=== PATIENT | female | born 2000 | race Two or more races ===

== ENCOUNTER 2018-12-13 00:09 | Emergency (ER) | payer OTHER, BC ==
[2018-12-13] MEDS ORDERED: Lidocaine 1% (PF) 30 ML VIAL ONE (00:45)
[2018-12-13] MEDS ORDERED: Bupivacaine 0.5% 10 ML VIAL ONE (00:54)
[2018-12-13] MEDS ORDERED: Adacel (T-DAP) 0.5 ML SYRINGE ONE (00:54)
--- NOTE | 2018-12-13 07:45 | RAD ---
LEFT HAND 3 VIEWS: Date: 12/13/18 INDICATION: History of left palmar laceration. COMPARISON: None. FINDINGS: No acute fracture or subluxation is evident. There is some radiopaque debris along the palmar soft ti ssues of the left long finger distal phalanx which may be in the zone of injury. Recommend correlatio n. Small amount of radiopaque debris within this region cannot be entirely excluded. IMPRESSION: As above. POS: BH
== END 2018-12-13 02:17 | disposition home or self-care (01) ==
LOC: ERS 00:09
DX: S61.213A Laceration without foreign body of left middle finger without damage to nail, initial encounter (principal); F41.9 Anxiety disorder, unspecified; F32.9 Major depressive disorder, single episode, unspecified; Z87.891 Personal history of nicotine dependence; W25.XXXA Contact with sharp glass, initial encounter
CPT/HCPCS: 90471; 90715; J2001; J3490

== ENCOUNTER 2019-09-26 05:05 | Emergency (ER) | payer BC | END 2019-09-26 05:45 | disposition home or self-care (01) | LOC: ERS 05:05 | DX: F41.9 Anxiety disorder, unspecified (principal); F32.9 Major depressive disorder, single episode, unspecified; Z87.891 Personal history of nicotine dependence | CPT/HCPCS: 93005; 94760 ==

== ENCOUNTER 2020-08-20 14:28 | Inpatient (IN) | payer BC, OTHER ==
[2020-08-20] MEDS ORDERED: Labetalol HCl 100 MG/20 ML VIAL ONE (15:14)
[2020-08-20] MEDS ORDERED: Ondansetron PF 4 MG/2 ML Vial IVP PRN (15:17)
[2020-08-20] MEDS ORDERED: Calcium Gluc 4.6 MEQ/10 ML (100 MG/ML) SLOW IVP PRN (15:17)
[2020-08-20] MEDS ORDERED: HYDROcodone/Acetaminophen 5/325 mg Tablet PO PRN (15:17)
[2020-08-20] MEDS ORDERED: Bupivacaine/Epinephrine 0.25% 30 ML VIAL ONE (15:17)
[2020-08-20] MEDS ORDERED: hydrALAZINE 20 MG/ML VIAL SLOW IVP PRN (15:17)
[2020-08-20] MEDS ORDERED: Lidocaine 1% (PF) 30 ML VIAL SC PRN (15:17)
[2020-08-20] MEDS ORDERED: NS / Oxytocin 40 units/1000ml 1,000 ML IV PRN (15:17)
[2020-08-20] MEDS ORDERED: Ibuprofen 800 MG TAB PO PRN (15:17)
[2020-08-20] MEDS ORDERED: Butorphanol Tartrate 1 MG/ML VIAL SLOW IVP PRN (15:17)
[2020-08-20] MEDS ORDERED: Magnesium Sulfate 20 gm/500 ml 20 GM/500 ML BAG ONE (15:25)
[2020-08-20] MEDS ORDERED: NS w/ Oxytocin 10 units 500 ML IV SCH (15:30)
[2020-08-20] MEDS ORDERED: Magnesium Sulfate 20 gm/500 ml 20 GM/500 ML BAG IVPB SCH (15:30)
[2020-08-20] MEDS ORDERED: Labetalol HCl 100 MG/20 ML VIAL SLOW IVP SCH (15:30)
[2020-08-20] MEDS ORDERED: Magnesium Sulfate 20 GM/WATER 500 ML BAG IVPB SCH (15:30)
[2020-08-20 15:39] VITALS: BMI 32.1
[2020-08-20 15:41] LABS: Hemoglobin 10.2 g/dL (12.0-16.0); Mean Corpuscular HGB CONC 32.3 g/dL (32.0-36.0); Mean Corpuscular Volume 80.4 fL (78.0-98.0); Mean Platelet Volume 8.4 fL (7.4-10.4); Platelet Count 271 thou/uL (130-400); RBC Distribution Width 14.6 % (11.5-14.5); Red Blood Cell (RBC) Count 3.94 mill/uL (4.20-5.40); White Blood Cell (WBC) Count 14.6 thou/uL (4.8-10.8)
[2020-08-20 15:58] LABS: Amphetamine Not Detected (NotDetected); Barbiturates Screen Not Detected (NotDetected); Benzodiazepine Screen Not Detected (NotDetected); Cocaine Metabolite Screen Not Detected (NotDetected); Medtox Control Line Valid? VALID (VALID); Medtox Reader # READER 1; Methadone Not Detected (NotDetected); Methamphetamine Not Detected (NotDetected); Opiate Screen Not Detected (NotDetected); Oxycodone Screen Not Detected (NotDetected); Phencyclidine (PCP) Not Detected (NotDetected); THC/Cannabinoid Screen Not Detected (NotDetected); Tricyclic Screen Not Detected (NotDetected)
[2020-08-20 15:59] LABS: ALT (SGPT) Less than 7 U/L (8-55); AST (SGOT) 11 U/L (5-34); Albumin 3.4 g/dL (3.5-5.0); Alkaline Phosphatase 171 U/L (40-110); Anion Gap 13 mmol/L (10-20); BUN (Urea Nitrogen) 5 mg/dL (7.0-18.7); Bilirubin, Total 0.3 mg/dL (0.2-1.2); Calc. Creatinine Clearance 245 mL/min (70-130); Calcium 8.9 mg/dL (7.8-10.44); Carbon Dioxide 18 mmol/L (22-29); Chloride 109 mmol/L (98-107); Estimated GFR-MDRD Greater than 90; Globulin 3.4 g/dL (2.4-3.5); Glucose 105 mg/dL (70-105); Potassium 3.9 mmol/L (3.5-5.1); Protein, Total 6.8 g/dL (6.0-8.3); Sodium 136 mmol/L (136-145)
[2020-08-20 16:17] LABS: HBSAg Index 0.16 S/CO (0-0.99); Hep B Surf Ag Non-Reactive S/CO (NonReactive)
[2020-08-20 16:21] LABS: Syphilis Antibody Nonreactive (Nonreactive); Syphilis Antibody Index 0.07 S/CO (<1.00 Non-Reactive)
[2020-08-20] MEDS: Acetaminophen 500 MG TAB PO PRN (17:50)
[2020-08-21] MEDS: Acetaminophen 500 MG TAB PO PRN ×2 (07:18→16:43)
--- NOTE | 2020-08-21 07:50 | PDOC.EVN ---
Event Note - Event Note Event Note: Pt not responding to pitocin. turned off at 0400. Mag turned off earlier in the evening as severe range pressures not evident and pt with out symptoms or lab abnormalities. Dr Carrion will be assuming care. I have checked out to her. Pt being given and regular breakfast. Bp have been normal since 1999 last night until this am.
--- NOTE | 2020-08-21 08:08 | PDOC.LDPN ---
Labor & Delivery Progress Note - Subjective Subjective: comfortable - Objective Vital signs reviewed and normal: yes (mild range w normal) General: NAD Dilation: 2 FHT: category 1 - Assessment (1) Gestational hypertension Code(s): O13.9 - GESTATIONAL HTN W/O SIGNIFICANT PROTEINURIA, UNSP TRIMESTER Current Visit: Yes Status: Acute Plan: other -: Pt here for IOL GHTN w failed IOL/cervical ripening w pitocin-will change to cytotec for continued plan of IOL.
[2020-08-21] MEDS ORDERED: Misoprostol 100 MCG TAB VAG SCH (09:00)
[2020-08-21] MEDS ORDERED: FLU VACC QS2020-21(6MOS UP)/PF 60 MCG/0.5 ML SYRINGE IM ONE (09:00)
[2020-08-21 11:35] LABS: SARS-CoV-2 MS2 Positive; SARS-CoV-2 N Gene Negative; SARS-CoV-2 S Gene Negative; SARS-CoV-2 by NAA Not Detected (NotDetected); SARS-CoV-2 orf1ab Negative
[2020-08-21] MEDS: Misoprostol 100 MCG TAB VAG SCH ×2 (12:25→16:30)
--- NOTE | 2020-08-21 13:02 | PDOC.LDPN ---
Labor & Delivery Progress Note - Subjective Subjective: comfortable - Objective Vital signs reviewed and normal: yes General: resting Dilation: 2 Effacement: 75% FHT: category 1 - Assessment (1) Gestational hypertension Code(s): O13.9 - GESTATIONAL HTN W/O SIGNIFICANT PROTEINURIA, UNSP TRIMESTER Current Visit: Yes Status: Acute Plan: continue plan of care
--- NOTE | 2020-08-21 16:20 | PDOC.LDPN ---
Labor & Delivery Progress Note - Subjective Subjective: comfortable - Objective Vital signs reviewed and normal: yes General: NAD Uterine fundus: non tender Dilation: 3 Effacement: 75% Station: -1 FHT: category 1 - Assessment (1) Gestational hypertension Code(s): O13.9 - GESTATIONAL HTN W/O SIGNIFICANT PROTEINURIA, UNSP TRIMESTER Current Visit: Yes Status: Acute Plan: continue plan of care -: S/P cytotec x 2 dose (5omcg then 25mcg), discussed repeat one more dose (some thinning of cervix noted) @ 50mcg and plan for AROM and pitocin after that if indicated.
[2020-08-21] MEDS ORDERED: Fentanyl 4 mcg/Bup 0.1% Cadd 100 ML ONE (17:49)
[2020-08-21] MEDS ORDERED: Calcium Gluc 4.6 MEQ/10 ML (100 MG/ML) SLOW IVP PRN (18:49)
[2020-08-21] MEDS ORDERED: Acetaminophen 325 MG TAB PO PRN (19:16)
[2020-08-21] MEDS ORDERED: Lactated Ringer's 500 ML IV PRN (19:16)
[2020-08-21] MEDS ORDERED: Naloxone HCl 0.4 mg/ml Vial IVP PRN ×2 (19:16)
[2020-08-21] MEDS ORDERED: Promethazine HCl 25 MG/ML VIAL IM PRN ×2 (19:16→21:51)
[2020-08-21] MEDS ORDERED: diphenhydrAMINE 50 MG/ML VIAL IVP PRN (19:16)
[2020-08-21] MEDS ORDERED: EPHEDRINE 25 MG/5 ML SYRINGE SLOW IVP PRN (19:16)
[2020-08-21] MEDS ORDERED: Ondansetron PF 4 MG/2 ML Vial IVP PRN ×2 (19:16→21:51)
[2020-08-21] MEDS ORDERED: Fentanyl 4 mcg/Bupivacaine 0.1% Cassette 100 ML EPIDURAL SCH (19:30)
[2020-08-21] MEDS ORDERED: Communication Order-Pharmacy FS SCH (19:30)
[2020-08-21] MEDS: NS / Oxytocin 40 units/1000ml 1,000 ML IV SCH (21:40)
[2020-08-21 21:48] LABS: Actual Bicarbonate (HCO3v) 20 mEq/L (22-28); Base Excess -6.1 mEq/L (-2.0 to +3.0)
[2020-08-21 21:50] LABS: Actual Bicarbonate (HCO3a) 26.4 mEq/L (22-28); Base Excess (BEa) -3.8 mEq/L (-2.0 to +3.0)
[2020-08-21] MEDS ORDERED: Milk Of Magnesia 30 ML UDCUP PO PRN (21:51)
[2020-08-21] MEDS ORDERED: Lanolin Ointment 7 GM TUBE TOP PRN (21:51)
[2020-08-21] MEDS ORDERED: Misoprostol 200 MCG TAB VAG PRN (21:51)
[2020-08-21] MEDS ORDERED: HYDROcodone/Acetaminophen 5/325 mg Tablet PO PRN (21:51)
[2020-08-21] MEDS ORDERED: Adacel (T-DAP) 0.5 ML SYRINGE IM ONE (21:51)
[2020-08-21] MEDS ORDERED: Methylergonovine 0.2 MG/ML VIAL IM PRN (21:51)
[2020-08-21] MEDS ORDERED: Zolpidem Tartrate 5 MG TAB PO PRN (21:51)
[2020-08-21] MEDS ORDERED: Benzocaine-Menthol 82.5 ML CAN TOP PRN (21:51)
[2020-08-21] MEDS ORDERED: hydrALAZINE 20 MG/ML VIAL SLOW IVP PRN (21:51)
[2020-08-21] MEDS ORDERED: Varicella virus, LIVE 0.5 ML VIAL SC ONE (21:51)
[2020-08-21] MEDS ORDERED: Measles/Mumps/Rubella 10 MCG/0.5 ML VIAL SC ONE (21:51)
[2020-08-21] MEDS ORDERED: Methylergonovine 0.2 MG TAB PO PRN (21:51)
[2020-08-21] MEDS ORDERED: Bisacodyl 10 MG SUPP PR PRN (21:51)
[2020-08-21] MEDS ORDERED: Preparation H Ointment 28 GM TUBE PR PRN (21:51)
[2020-08-21] MEDS ORDERED: diphenhydrAMINE 25 MG CAP PO PRN (21:51)
--- NOTE | 2020-08-21 21:56 | PDOC.OPDEL ---
OB Operative/Delivery Note Delivery Dr/Surgeon: Cyndy Pre-Delivery Diagnosis: medically indicated induction Procedure/Post Delivery Dx: operative vaginal delivery (vacuum assisted) Weeks gestation: 37 Anesthesia: epidural - Findings A Sex: male (Jc) Weight: 7 lb 4.898 oz - 1 min: 7 - 5 min: 9 - Additional Findings/Plan Placenta delivered: spontaneous Repaired Obstetrical Laceration: 2nd degree Estimated blood loss: 505 ml Compilations/Other Findings: Patient gave verbal consent for vacuum assist if needed because of recurrent decelerations. Due to prolonged variable deceleration to 50s with no recovery, vacuum applied at +3 to +4 station. head delivered with maternal effort over one contraction. Pressure at 50 with no pop-offs. Vacuum removed and remainder of body delivered without difficulty. Post delivery plan: recovery in LICU
[2020-08-21] MEDS ORDERED: Calcium Gluconate 4.6 MEQ in Sodium Chloride 0.9% 100 ML IVPB PRN (22:39)
[2020-08-21] MEDS ORDERED: Magnesium Sulfate 20 gm/500 ml 20 GM/500 ML BAG IVPB SCH (22:45)
[2020-08-22] MEDS: Magnesium Sulfate 20 gm/500 ml 20 GM/500 ML BAG IVPB SCH ×2 (03:35→13:30)
[2020-08-22] MEDS: NS / Oxytocin 40 units/1000ml 1,000 ML IV SCH (07:05)
[2020-08-22] MEDS: HYDROcodone/Acetaminophen 5/325 mg Tablet PO PRN ×2 (07:19→18:09)
[2020-08-22] MEDS: Ibuprofen 800 MG TAB PO SCH ×3 (07:20→21:58)
[2020-08-22] MEDS ORDERED: Ferrous Sulfate 325 MG TAB PO SCH ×2 (08:00→20:54)
--- NOTE | 2020-08-22 08:18 | PDOC.PP ---
Post Progress Note Post Day #: 1 Subjective: doing well, magnesium recovery, no SI/SX pIH PO intake tolerated: yes Flatus: yes Ambulation: no Weight Weight 244 lb - Physical Examination General: NAD Respiratory: non-labored breathing Fundus firm & at: below umb Psychiatric: A&Ox3, normal affect Result Diagrams: 08/20/20 15:27 08/20/20 15:27 Additional Labs: Post Labs Hep Bs Antigen Non-Reactive S/CO (NonReactive) 08/20/20 15:27 Blood Type B POSITIVE 08/20/20 16:31 (1) Gestational hypertension Code(s): O13.9 - GESTATIONAL HTN W/O SIGNIFICANT PROTEINURIA, UNSP TRIMESTER Status: Acute - Assessment/Plan PPD 1, magnesium recovery for severe PIH through 2100 tonight.
[2020-08-22] MEDS ORDERED: Docusate Calcium (SURFAK) 240 MG CAP PO SCH (09:00)
[2020-08-22] MEDS ORDERED: Prenatal Vitamin 1 TAB PO SCH ×2 (09:00→20:54)
[2020-08-22] MEDS ORDERED: hydrALAZINE 20 MG/ML VIAL SLOW IVP PRN (20:54)
[2020-08-22] MEDS ORDERED: HYDROcodone/Acetaminophen 5/325 mg Tablet PO PRN ×2 (20:54)
[2020-08-22] MEDS ORDERED: Milk Of Magnesia 30 ML UDCUP PO PRN (20:54)
[2020-08-22] MEDS ORDERED: Lanolin Ointment 7 GM TUBE TOP PRN (20:54)
[2020-08-22] MEDS ORDERED: NS / Oxytocin 40 units/1000ml 1,000 ML IV SCH (20:54)
[2020-08-22] MEDS ORDERED: Bisacodyl 10 MG SUPP PR PRN (20:54)
[2020-08-22] MEDS ORDERED: diphenhydrAMINE 25 MG CAP PO PRN (20:54)
[2020-08-22] MEDS ORDERED: Preparation H Ointment 28 GM TUBE PR PRN (20:54)
[2020-08-22] MEDS ORDERED: Ondansetron PF 4 MG/2 ML Vial IVP PRN (20:54)
[2020-08-22] MEDS ORDERED: Promethazine HCl 25 MG/ML VIAL IM PRN (20:54)
[2020-08-22] MEDS ORDERED: Adacel (T-DAP) 0.5 ML SYRINGE IM ONE (20:54)
[2020-08-22] MEDS ORDERED: Benzocaine-Menthol 82.5 ML CAN TOP PRN (20:54)
[2020-08-22] MEDS: Docusate Calcium (SURFAK) 240 MG CAP PO SCH (21:58)
[2020-08-23] MEDS ORDERED: Ibuprofen 800 MG TAB PO SCH (05:00)
[2020-08-23] MEDS: Ibuprofen 800 MG TAB PO SCH (05:52)
--- NOTE | 2020-08-23 08:12 | PDOC.PP ---
Post Progress Note Post Day #: 2 Subjective: doing well,no PIH sx PO intake tolerated: yes Flatus: yes Ambulation: yes Weight Weight 244 lb - Physical Examination General: NAD Respiratory: non-labored breathing Abdominal: no distention Fundus firm & at: below umb Neurological: no gross focal deficits Psychiatric: A&Ox3, normal affect Result Diagrams: 08/20/20 15:27 08/20/20 15:27 Additional Labs: Post Labs Hep Bs Antigen Non-Reactive S/CO (NonReactive) 08/20/20 15:27 Blood Type B POSITIVE 08/20/20 16:31 (1) Gestational hypertension Code(s): O13.9 - GESTATIONAL HTN W/O SIGNIFICANT PROTEINURIA, UNSP TRIMESTER Status: Acute - Assessment/Plan PPD2 doing well, BP WNL off magnesium. Has BP cuff at home and will continue to monitor. Plan for DC this afternoon if BP remain WNL/mild range.
[2020-08-23] MEDS: Docusate Calcium (SURFAK) 240 MG CAP PO SCH (08:59)
[2020-08-23 09:09] VITALS: BP 121/70; TEMP 98.2
== END 2020-08-23 13:30 | disposition home or self-care (01) | DRG 807 ==
LOC: L&D/OP 14:28 → L&D 15:44
PROVIDERS: ADMIT Obstetrics & Gynecology; ATTEND Obstetrics & Gynecology
PROC: 10D07Z6 Extraction of Products of Conception, Vacuum, Via Natural or Artificial Opening (ICD-10-PCS; principal; 2020-08-21)
PROC: 0KQM0ZZ Repair Perineum Muscle, Open Approach (ICD-10-PCS; 2020-08-21)
PROC: 3E02340 Introduction of Influenza Vaccine into Muscle, Percutaneous Approach (ICD-10-PCS; 2020-08-21)
PROC: 10907ZC Drainage of Amniotic Fluid, Therapeutic from Products of Conception, Via Natural or Artificial Opening (ICD-10-PCS; 2020-08-21)
PROC: 3E0P7VZ Introduction of Hormone into Female Reproductive, Via Natural or Artificial Opening (ICD-10-PCS; 2020-08-21)
PROC: 3E033VJ Introduction of Other Hormone into Peripheral Vein, Percutaneous Approach (ICD-10-PCS; 2020-08-21)
DX: O14.14 Severe pre-eclampsia complicating childbirth (principal); Z37.0 Single live birth; Z23 Encounter for immunization; Z20.828 Contact with and (suspected) exposure to other viral communicable diseases; O76 Abnormality in fetal heart rate and rhythm complicating labor and delivery; O70.1 Second degree perineal laceration during delivery; Z3A.37 37 weeks gestation of pregnancy
CPT/HCPCS: 36415; 51702; 80053; 80306; 82570; 82805; 83735; 84156; 85027; 86780; 86850; 86900; 86901; 87340; 87635; 99285; J2590; J3475; U0003